=== PATIENT | male | born 1945 | race Caucasian/White ===

== ENCOUNTER 2021-04-10 11:22 | Outpatient (CLI) | payer MEDICARE ==
[2021-04-10 11:57] LABS: Mean Corpuscular HGB CONC 32.3 g/dL (32.0-36.0); Mean Corpuscular Volume 89.6 fL (78.0-98.0); Mean Platelet Volume 7.6 fL (7.4-10.4); Platelet Count 193 thou/uL (130-400); RBC Distribution Width 13.7 % (11.5-14.5); Red Blood Cell (RBC) Count 5.18 mill/uL (4.70-6.10); White Blood Cell (WBC) Count 16.5 thou/uL (4.8-10.8)
[2021-04-10 12:27] LABS: Bilirubin Negative (Negative); Blood, Urine Large (Negative); Clarity Turbid (Clear); Glucose, Urine (Dipstick) Negative (Negative); Ketone, Urine Negative (Negative); Leukocyte Large (Negative); Nitrite Positive (Negative); Protein, Urine (Dipstick) 100 mg/dL (Neg-Trace); Urobilinogen 0.2 mg/dL (Less than 2)
[2021-04-10 12:33] LABS: Anion Gap 21 mmol/L (10-20); BUN (Urea Nitrogen) 94 mg/dL (8.4-25.7); Calc. Creatinine Clearance 0 mL/min (70-130); Calcium 8.6 mg/dL (7.8-10.44); Carbon Dioxide 19 mmol/L (23-31); Chloride 105 mmol/L (98-107); Glucose 209 mg/dL (83-110); Potassium 5.6 mmol/L (3.5-5.1); Sodium 139 mmol/L (136-145)
[2021-04-10 12:44] LABS: Bacteria/HPF 3+ HPF (None Seen); RBC/HPF 0-3 HPF (0-3); Squamous Epithelial 0-3 HPF (0-3); WBC/HPF Greater Than 50 HPF (0-3)
== END 2021-04-10 11:23 | disposition home or self-care (01) ==
LOC: BURMANOR 11:22
PROVIDERS: ATTEND Registered Nurse Community Health
DX: N39.0 Urinary tract infection, site not specified (principal); R41.82 Altered mental status, unspecified
CPT/HCPCS: 80048; 81001; 85027; 87086